=== PATIENT | male | born 2000 | race Two or more races ===

== ENCOUNTER 2022-05-23 03:40 | Emergency (ER) | payer MEDICAID, OTHER ==
[~2022-05-23] VITALS: Ht 180.3 cm; Wt 109.1 kg
[2022-05-23 04:07] VITALS: BP 142/81
== END 2022-05-23 06:30 | disposition left against medical advice (07) ==
LOC: EDBD 03:40 → ER 03:40
DX: M25.532 Pain in left wrist (principal); M54.9 Dorsalgia, unspecified; Z53.21 Procedure and treatment not carried out due to patient leaving prior to being seen by health care provider; V49.9XXA Car occupant (driver) (passenger) injured in unspecified traffic accident, initial encounter; Y93.89 Activity, other specified; Y92.89 Other specified places as the place of occurrence of the external cause; Y99.8 Other external cause status